=== PATIENT | male | born 1980 | race Caucasian/White ===

== ENCOUNTER 2020-09-27 11:40 | Emergency (ER) | payer BC ==
[~2020-09-27] VITALS: Ht 180.3 cm; Wt 80.7 kg
[2020-09-27] MEDS ORDERED: VOLTAREN100 GM TOP (15:46)
== END 2020-09-27 15:51 | disposition home or self-care (01) ==
LOC: ER 11:40
DX: S93.491A Sprain of other ligament of right ankle, initial encounter (principal); S90.32XA Contusion of left foot, initial encounter; S60.011A Contusion of right thumb without damage to nail, initial encounter; S50.812A Abrasion of left forearm, initial encounter; S50.811A Abrasion of right forearm, initial encounter; S00.81XA Abrasion of other part of head, initial encounter; W01.198A Fall on same level from slipping, tripping and stumbling with subsequent striking against other object, initial encounter; Y93.89 Activity, other specified; Y92.018 Other place in single-family (private) house as the place of occurrence of the external cause; Y99.8 Other external cause status